=== PATIENT | male | born 1955 | race Hispanic/Latino ===

== ENCOUNTER → 2023-11-19 | Outpatient (CLI) | payer OTHER, MEDICARE ==
[~2023-11-19] MED LIST: CEPH500B PO; INSU300I SQ; LISI10TA24 PO; METO25TA6 PO; TAMS-1 PO
[2023-11-19 09:48] LABS: APPEARANCE,URINE TURBID (CLEAR); BILIRUBIN,URINE NEGATIVE (NEGATIVE); COLOR,URINE LIGHT-ORANGE (YELLOW); GLUCOSE, URINE (UA) NEGATIVE (NEGATIVE); KETONES,URINE NEGATIVE (NEGATIVE); LEUKOCYTE ESTERASE ,URINE 500 Leu/uL (NEGATIVE); NITRATE,URINE NEGATIVE (NEGATIVE); OCCULT BLOOD,URINE LARGE (NEGATIVE); PH,URINE 6.5 (5.0-8.0); PROTEIN,URINE 100 mg/dL (NEGATIVE); UROBILINOGEN,URINE 0.2 mg/dL (0.2-1.0)
[2023-11-19 09:57] LABS: ADD UA MICROSCOPIC YES
[2023-11-19 10:00] LABS: BASOPHILS # (AUTO) 0.06 K/uL (0.00-0.20); BASOPHILS % (AUTO) 0.5 % (0.0-5.0); EOSINOPHILS # (AUTO) 0.16 K/uL (0.00-0.70); EOSINOPHILS % (AUTO) 1.4 % (0.0-8.0); IMMATURE GRANULOCYTE ABSOLUTE 0.03 K/uL (0-1); LYMPHOCYTES # (AUTO) 2.2 K/uL (1.0-4.8); LYMPHOCYTES % (AUTO) 19.3 % (21.0-51.0); MEAN CORPUSCULAR HEMOGLOBIN 31.5 pg (27.0-33.0); MEAN CORPUSCULAR HGB CONC 34.6 g/dL (32.0-36.0); MEAN CORPUSCULAR VOLUME 91.3 fL (79-99); MONOCYTES # (AUTO) 0.9 K/uL (0.1-1.0); MONOCYTES % (AUTO) 7.8 % (3.0-13.0); NEUTROPHILS # (AUTO) 7.9 K/uL (1.8-7.7); NEUTROPHILS % (AUTO) 70.7 % (40.0-77.0); PLATELET COUNT (AUTO) 276 K/uL (130-400); RED BLOOD CELL COUNT(AUTO) 5.04 MIL/uL (4.50-6.20); RED CELL DISTRIBUTION WIDTH 13.2 % (11.0-15.5); WHITE BLOOD COUNT (AUTO) 11.2 K/uL (4.8-10.8)
[2023-11-19 10:03] LABS: BACTERIA,URINE FEW /HPF (None Seen); NON-SQUAMOUS EPITHELIAL CELL 1 /HPF (0-2); RBC,URINE 51-100 /HPF (0-1); WBC CLUMP MANY /HPF (0-1); WBC,URINE TNTC /HPF (0-1)
[2023-11-19 10:46] LABS: ALBUMIN 4.4 g/dL (3.5-5.0); CREATININE 1.6 mg/dL (0.5-1.5); PHOSPHORUS 3.3 mg/dL (2.5-4.9); TOTAL PROTEIN, SERUM 9.7 g/dL (6.0-8.3)
[2023-11-19 23:40] LABS: HEPATITIS B SURFACE ANTIGEN Non-Reactive (Nonreactive); HEPATITIS C ANTIBODY Non-Reactive (Nonreactive)
[2023-11-20 10:13] LABS: ANTI-SCLERODERMA 70 <0.2 AI (0.0-0.9)
[2023-11-22 18:11] LABS: ALBUMIN (IFE & ELECTROPHOR) 3.9 g/dL (2.9-4.4); ALPHA-1 (IFE & PEP) 0.3 g/dL (0.0-0.4); ALPHA-2 (IFE & PEP) 0.7 g/dL (0.4-1.0); BETA (IFE & ELP) 1.2 g/dL (0.7-1.3); GAMMA GLOBULINS (IFE & ELP) 1.9 g/dL (0.4-1.8); GLOBULIN TOTAL (IFE) 4.1 g/dL (2.2-3.9); IGA (IFE) 444 mg/dL (61-437); IGG (IMMUNOFIXATION) 1871 mg/dL (603-1613); IGM (IMMUNOFIXATION) 95 mg/dL (20-172); IMMUNOFIXATION RESULT Note: (.); M-SPIKE (IEP) Not Observed g/dL (Not Observed)
[2023-11-23 15:14] LABS: ATYPICAL P-ANCA AB <1:20 titer (Neg:<1:20); CYTOPLASMIC (C-ANCA) AB, IGG <1:20 titer (Neg:<1:20)
== END | disposition home or self-care (01) ==
LOC: LAB 08:51
PROVIDERS: ATTEND Internal Medicine Nephrology
DX: I12.9 Hypertensive chronic kidney disease with stage 1 through stage 4 chronic kidney disease, or unspecified chronic kidney disease (principal); N18.9 Chronic kidney disease, unspecified; I16.0 Hypertensive urgency; R53.1 Weakness
CPT/HCPCS: 36415; 80053; 81001; 82088; 83835; 83970; 84100; 84244; 85025; 86038; 86160; 86215; 86235; 86255; 86334; 86803; 87077; 87088; 87186; 87340